=== PATIENT | female | born 1970 | race Caucasian/White ===

== ENCOUNTER 2024-10-23 11:46 | Inpatient (IN) | payer OTHER ==
[~2024-10-23] VITALS: Ht 320 cm; Wt 79.8 kg
[2024-10-23 12:11] VITALS: O2SAT 99
[2024-10-23 12:55] LABS: BASOPHILS % 0.4 % (0.0-2.0); HEMATOCRIT. 42.9 % (36.0-48.0); HEMOGLOBIN. 14.2 g/dL (12.0-16.0); LYMPHOCYTES % 22.1 % (20.0-50.0); MEAN CORPUSCULAR HEMOGLOBIN 30.3 pg (28.0-32.0); MEAN CORPUSCULAR VOLUME 91.8 fL (81.0-99.0); MEAN PLATELET VOLUME 8.2 fl (7.4-10.4); MONOCYTES % 6.4 % (2.0-8.0); NEUTROPHILS % 69.1 % (40.0-76.0); PLATELET 257 x1000/uL (130-400); RED BLOOD CELL COUNT 4.68 mill/uL (4.2-5.4); RED CELL DISTRIBUTION WIDTH 16.6 % (11.6-14.6); WHITE BLOOD COUNT 10.1 x1000/uL (4.5-11.0)
[2024-10-23 13:20] LABS: CHLORIDE 108 mEq/L (98-107); SODIUM 139 mEq/L (136-145)
[2024-10-23 13:21] LABS: CALCIUM 8.8 mg/dL (8.7-10.4); CARBON DIOXIDE 23 mEq/L (21-32)
[2024-10-23 13:26] LABS: CREATININE 1.1 mg/dL (0.6-1.0); GLUCOSE 129 mg/dL (70-105); UREA NITROGEN BLOOD 19 mg/dL (9-23)
[2024-10-23] MEDS ORDERED: AZITHROMYCIN 500MG/250ML 250 ML IV STA (13:34)
[2024-10-23 13:38] LABS: TROPONIN I HIGH SENSITIVITY 37 ng/L (3.0-34)
[2024-10-23] MEDS ORDERED: FUROSEMIDE 40MG/4ML VIAL IVP ONE (13:45)
[2024-10-23] MEDS ORDERED: CEFTRIAXONE 1GM/50ML 50 ML IV ONE (13:45)
[2024-10-23] MEDS ORDERED: ENALAPRIL 2.5MG/2ML VIAL 2ML IV ONE (13:45)
[2024-10-23 14:00] VITALS: BP 181/116; PULSE 110; RESP 20; TEMP 36.9; O2SAT 94
[2024-10-23] MEDS: HYDRALAZINE 20MG/ML VIAL IV NR (14:54)
[2024-10-23] MEDS ORDERED: DOCUSATE SODIUM 100MG CAPSULE PO PRN (15:00)
[2024-10-23] MEDS ORDERED: ONDANSETRON HCL 4MG/2ML INJ IV PRN (15:00)
[2024-10-23] MEDS ORDERED: GUAIFENESIN 200MG/10ML SUGAR FREE UDC PO PRN (15:00)
[2024-10-23] MEDS ORDERED: ACETAMINOPHEN 325MG TABLET PO PRN (15:00)
[2024-10-23] MEDS ORDERED: AZITHROMYCIN 500MG/250ML 250 ML IV NR (15:00)
[2024-10-23] MEDS ORDERED: MAGNESIUM/ALUMINUM HYDROXIDE/SIMETHICONE 30ML UDC PO PRN (15:00)
[2024-10-23] MEDS ORDERED: IPRATROPIUM BROMIDE (0.02%) 0.5MG/2.5ML NEB HHN PRN (15:15)
[2024-10-23] MEDS ORDERED: ENALAPRIL 1.25MG/ML VIAL 1ML IV NR (15:30)
[2024-10-23 16:00] VITALS: BP 150/95; PULSE 100; RESP 18; TEMP 36.7; O2SAT 95
[2024-10-23] MEDS ORDERED: DEXTROSE 50% WATER 50ML SYRINGE IV PRN (16:00)
[2024-10-23] MEDS: CEFTRIAXONE 1GM/50ML 50 ML IV SCH (17:07)
[2024-10-23] MEDS: INSULIN LISPRO 100 UNITS/ML SUBCUT SCH (17:15)
[2024-10-23] MEDS: BLOOD SUGAR DIAGNOSTIC STRIP TEST SCH (17:25)
[2024-10-23 18:29] VITALS: BP 181/116; PULSE 105; RESP 20; TEMP 36.7
[2024-10-23 20:00] VITALS: BP 166/103; PULSE 107; TEMP 36.7; O2SAT 90
[2024-10-23] MEDS: FAMOTIDINE 20MG TABLET PO SCH (20:26)
[2024-10-23] MEDS: HYDRALAZINE HCL 25MG TABLET PO SCH (20:27)
[2024-10-23 22:04] LABS: TROPONIN I HIGH SENSITIVITY 40 ng/L (3.0-34)
[2024-10-24] VITALS (7 sets, daily range): BP systolic 154–167; BP diastolic 95–124; PULSE 90–144; RESP 18–20; TEMP 36.6–37.5; O2SAT 90–98
[2024-10-24] MEDS: CLONIDINE 0.1MG TABLET PO PRN (00:24)
[2024-10-24 00:30] LABS: CLARITY URINE CLEAR (CLEAR); COLOR URINE YELLOW (YELLOW); GLUCOSE URINE NEGATIVE (NEGATIVE); KETONES URINE TRACE (NEGATIVE); LEUKOCYTE ESTERASE URINE TRACE (NEGATIVE); NITRITE URINE NEGATIVE (NEGATIVE); OCCULT BLOOD URINE NEGATIVE (NEGATIVE); PH URINE 5.5 (4.5-8.0); PROTEIN URINE 4+ (NEGATIVE); SPECIFIC GRAVITY URINE 1.027 (1.005-1.030)
[2024-10-24 00:57] LABS: *AMPHETAMINES SCREEN URINE PRESUMPTIVE POSITIVE (NEGATIVE); *BARBITURATES SCREEN URINE NEGATIVE (NEGATIVE); *BENZODIAZEPINES SCREEN URINE NEGATIVE (NEGATIVE); *COCAINE SCREEN URINE NEGATIVE (NEGATIVE); CANNABINOID URINE SCREEN NEGATIVE (NEGATIVE); ECSTASY MDMA SCREEN URINE CONF.TEST INDICATED (NEGATIVE); METHADONE URINE SCREEN NEGATIVE (NEGATIVE); OPIATES URINE SCREEN NEGATIVE (NEGATIVE); PHENCYCLIDINE URINE SCREEN NEGATIVE (NEGATIVE)
[2024-10-24] MEDS: ZOLPIDEM TARTRATE 5MG TABLET PO NR (01:50)
[2024-10-24 02:11] LABS: SQUAMOUS EPITHELIAL CELL URINE 2+ /lpf (RARE/1+)
[2024-10-24 02:12] LABS: RBC URINE 0-2 /hpf (0-2); WBC URINE 15-25 /hpf (0-2)
[2024-10-24 02:14] LABS: BACTERIA URINE TRACE
[2024-10-24 03:21] LABS: TROPONIN I HIGH SENSITIVITY 42 ng/L (3.0-34)
[2024-10-24 08:39] LABS: BASOPHILS % 0.8 % (0.0-2.0); EOSINOPHILS % 1.1 % (0.0-5.0); HEMOGLOBIN. 14.2 g/dL (12.0-16.0); LYMPHOCYTES % 17.2 % (20.0-50.0); MEAN CORPUSCULAR HEMOGLOBIN 30.5 pg (28.0-32.0); MEAN CORPUSCULAR VOLUME 92.6 fL (81.0-99.0); MEAN PLATELET VOLUME 8.9 fl (7.4-10.4); NEUTROPHILS % 74.9 % (40.0-76.0); PLATELET 259 x1000/uL (130-400); RED BLOOD CELL COUNT 4.64 mill/uL (4.2-5.4); RED CELL DISTRIBUTION WIDTH 16.7 % (11.6-14.6); WHITE BLOOD COUNT 10.4 x1000/uL (4.5-11.0)
[2024-10-24 08:41] LABS: POTASSIUM 4.1 mEq/L (3.5-5.1)
[2024-10-24 08:42] LABS: CALCIUM 9.3 mg/dL (8.7-10.4)
[2024-10-24 08:47] LABS: CREATININE 1.2 mg/dL (0.6-1.0)
[2024-10-24] MEDS: ENOXAPARIN 40MG/0.4ML SYR SUBCUT SCH (09:12)
[2024-10-24] MEDS: LOSARTAN 100 MG TABLET PO SCH (09:13)
[2024-10-24] MEDS: METOPROLOL SUCCINATE 50MG ER TABLET PO SCH (09:16)
[2024-10-24] MEDS ORDERED: LIP40 MT (16:03)
[2024-10-24] MEDS ORDERED: NITR-87 MT (16:05)
[2024-10-24] MEDS: ACETAMINOPHEN 325MG TABLET PO PRN (18:01)
== END 2024-10-24 18:25 | disposition home or self-care (01) | DRG 139 ==
LOC: ER 11:46 → 5WST 12:56
PROVIDERS: ADMIT Hospitalist; ATTEND Hospitalist
DX: J18.9 Pneumonia, unspecified organism (principal); J96.01 Acute respiratory failure with hypoxia; I21.A1 Myocardial infarction type 2; I13.0 Hypertensive heart and chronic kidney disease with heart failure and stage 1 through stage 4 chronic kidney disease, or unspecified chronic kidney disease; I16.1 Hypertensive emergency; J44.0 Chronic obstructive pulmonary disease with (acute) lower respiratory infection; F15.10 Other stimulant abuse, uncomplicated; F41.9 Anxiety disorder, unspecified; E66.3 Overweight; N17.9 Acute kidney failure, unspecified; N18.9 Chronic kidney disease, unspecified; I50.23 Acute on chronic systolic (congestive) heart failure; E78.5 Hyperlipidemia, unspecified; F17.210 Nicotine dependence, cigarettes, uncomplicated; I44.4 Left anterior fascicular block; N39.0 Urinary tract infection, site not specified; E11.65 Type 2 diabetes mellitus with hyperglycemia; J98.8 Other specified respiratory disorders; Z91.148 Patient's other noncompliance with medication regimen for other reason; I25.2 Old myocardial infarction; Z79.899 Other long term (current) drug therapy; Z59.01 Sheltered homelessness; Z68.1 Body mass index [BMI] 19.9 or less, adult
CPT/HCPCS: 36415; 71045; 80048; 80061; 80305; 81003; 82962; 83036; 83605; 83880; 84145; 84484; 85025; 87070; 93005; 97166; 99285; A4606; J0360; J0456; J0696; J1650; J1815; J3490